=== PATIENT | female | born 1940 | race Caucasian/White ===

== ENCOUNTER 2021-07-23 09:51 | Day surgery (SDC) | payer MEDICARE, OTHER ==
[2021-07-23] VITALS (14 sets, daily range): BP systolic 130–173; BP diastolic 64–92
[~2021-07-23] VITALS: Ht 160 cm; Wt 73.3 kg
[~2021-07-23 09:51] MED LIST: BETA1TAB18 PO; CALC1TAB2 PO; GLUC15006 PO; LEVO137T2 PO; METF-900 PO; METF500T PO; MULT-66 PO; NITR0.4T48 SL
[2021-07-23] MEDS ORDERED: normal saline 1000ml 1,000 ML IV SCH (10:15)
[2021-07-23] MEDS ORDERED: MIDAZolam 1mg/ml 10ml vial IV ONE (10:15)
[2021-07-23] MEDS ORDERED: fentaNYL/PF 50MCG/1 ML 2ML syringe IV ONE (10:15)
[2021-07-23] MEDS ORDERED: DILT120C91 PO (10:22)
[2021-07-23] MEDS ORDERED: OLME5TAB3 PO (10:22)
[2021-07-23] MEDS ORDERED: GABA300T25 (10:22)
[2021-07-23] MEDS ORDERED: ANAS1TAB10 PO (10:22)
[2021-07-23] MEDS ORDERED: ALEN70TA37 PO (10:24)
== END 2021-07-23 13:30 | disposition home or self-care (01) ==
LOC: SSTAY O 09:51
PROVIDERS: ATTEND Student in an Organized Health Care Education/Training Program
DX: I08.1 Rheumatic disorders of both mitral and tricuspid valves (principal); J44.9 Chronic obstructive pulmonary disease, unspecified; I25.10 Atherosclerotic heart disease of native coronary artery without angina pectoris; E11.9 Type 2 diabetes mellitus without complications; I47.1 Supraventricular tachycardia; E03.9 Hypothyroidism, unspecified; I27.20 Pulmonary hypertension, unspecified; Z88.5 Allergy status to narcotic agent; Z88.0 Allergy status to penicillin; Z79.899 Other long term (current) drug therapy; Z79.84 Long term (current) use of oral hypoglycemic drugs
CPT/HCPCS: 93312; 93325; 94799